=== PATIENT | female | born 1930 | race Caucasian/White ===

== ENCOUNTER 2017-03-03 15:18 | Inpatient (IN) | payer MEDICARE, OTHER ==
[~2017-03-03] VITALS: Ht 152.4 cm; Wt 59.0 kg
--- NOTE | 2017-03-03 15:20 | NUR ---
BIB respiratory care assistant to ER for chest pain, left shoulder pain, and back pain, aching x 4 days. Patient is aao4.Appears in no apparent distress. Respiration even and unlabored, Skin is warm to touch and non diaphoretic. Afebrile. Gowned pt and placed on tele monitor.vss
--- NOTE | 2017-03-03 15:45 | NUR ---
DR. CASSIDY AT BS.
[2017-03-03] MEDS ORDERED: ASPIRIN 81 MG TAB.CHEW ONE ×2 (15:53→15:56)
[2017-03-03 15:54] LABS: BASOPHILS # (AUTO) 0.1 /CMM (0.0-0.2); BASOPHILS % (AUTO) 0.7 % (0.0-2.0); EOSINOPHILS # (AUTO) 0.3 /CMM (0.0-0.7); EOSINOPHILS % (AUTO) 3.3 % (0.0-6.0); HEMATOCRIT 41 % (33-45); HEMOGLOBIN 13.6 g/dL (11.5-14.8); LYMPHOCYTES # (AUTO) 2.2 /CMM (0.8-4.8); LYMPHOCYTES % (AUTO) 25.5 % (20.0-44.0); MEAN CORPUSCULAR HEMOGLOBIN 31 PG (26.0-33.0); MEAN CORPUSCULAR HGB CONC 33 g/dl (31.0-36.0); MEAN CORPUSCULAR VOLUME 94 fL (82-100); MONOCYTES # (AUTO) 0.6 /CMM (0.1-1.30); MONOCYTES % (AUTO) 6.5 % (2.0-12.0); NEUTROPHILS # (AUTO) 5.4 /CMM (1.8-8.9); PLATELET COUNT (AUTO) 152 /CMM (150-450); RDW COEFFICIENT OF VARIATION 12.6 (11.5-15.0); RED BLOOD CELL COUNT(AUTO) 4.41 MIL/uL (4.0-5.2); WHITE BLOOD COUNT (AUTO) 8.6 K/uL (4.3-11.0)
[2017-03-03] MEDS ORDERED: ASPIRIN 81 MG TAB.CHEW PO ONE (16:00)
[2017-03-03 16:04] LABS: CALCIUM, SERUM 9.6 mg/dL (8.5-10.1); CARBON DIOXIDE 27 mmol/L (21-32); CHLORIDE 105 mmol/L (98-107); CREATININE 1.2 mg/dL (0.6-1.3); GLUCOSE 99 mg/dL (74-106); POTASSIUM 4.7 mmol/L (3.5-5.1); SODIUM SERUM 138 mmol/L (136-145); UREA NITROGEN, BLOOD 27 mg/dL (7-18)
[2017-03-03 16:06] LABS: INR 0.99 (0.87-1.13); PROTHROMBIN TIME 10.3 SECS (9.5-12.7)
[2017-03-03 16:13] LABS: TROPONIN I < 0.017 ng/mL (0.00-0.056)
[2017-03-03] MEDS ORDERED: Z GUARD REMEDY 2 OZ OINT TP PRN ×2 (17:00→18:00)
[2017-03-03] MEDS ORDERED: MAGNESIUM HYDROXIDE 30 ML UDC PO PRN ×2 (17:00→18:00)
[2017-03-03] MEDS ORDERED: ACETAMINOPHEN 325 MG TABLET PO PRN ×2 (17:00→18:00)
[2017-03-03] MEDS ORDERED: TRAMADOL HCL 50 MG TABLET PO PRN ×2 (17:00→18:00)
[2017-03-03] MEDS ORDERED: MAG HYDROX/AL HYDROX/SIMETH 30 ML UDC PO PRN ×2 (17:00→18:00)
[2017-03-03] MEDS ORDERED: ONDANSETRON HCL/PF 4 MG/2 ML VIAL IVP PRN ×2 (17:00→18:00)
[2017-03-03] MEDS ORDERED: ZOLPIDEM TARTRATE 5 MG TABLET PO PRN ×2 (17:00→18:00)
--- NOTE | 2017-03-03 17:42 | NUR ---
REPORT GIVEN TO CARMEN TALLEY FOR 323-1
[2017-03-03] MEDS ORDERED: FLUTICASONE FUROATE IH (19:18)
[2017-03-03] MEDS ORDERED: LACT1CAP61 PO (19:18)
[2017-03-03] MEDS ORDERED: CRAN450T3 PO (19:18)
[2017-03-03] MEDS ORDERED: CYAN10009 PO (19:18)
[2017-03-03] MEDS ORDERED: LEVO25TA2 PO (19:18)
[2017-03-03] MEDS ORDERED: DOCU250C75 PO (19:18)
[2017-03-03] MEDS ORDERED: TRAM50TA2 PO (19:18)
[2017-03-03] MEDS ORDERED: DEXT15DR6 EACHEYE (19:18)
[2017-03-03] MEDS ORDERED: ESOM40CA PO (19:18)
[2017-03-03] MEDS ORDERED: BISM262O28 PO (19:18)
[2017-03-03] MEDS ORDERED: DIPH50CA4 PO (19:18)
[2017-03-03] MEDS ORDERED: MELA1TAB15 PO (19:18)
[2017-03-03] MEDS ORDERED: ACET-1443 PO ×2 (19:18)
[2017-03-03] MEDS ORDERED: ASPI-605 PO (19:18)
[2017-03-03] MEDS ORDERED: ATOR20TA PO (19:18)
[2017-03-03] MEDS ORDERED: FURO20TA4 PO (19:18)
[2017-03-03] MEDS ORDERED: GUAI100S4 PO (19:18)
[2017-03-03] MEDS ORDERED: VILANTEROL IH (19:18)
[2017-03-03] MEDS ORDERED: MAGN400O6 PO (19:18)
[2017-03-03] MEDS ORDERED: CARBIDOPA 25 MG PO (19:18)
[2017-03-03] MEDS ORDERED: LOPE2CAP PO (19:18)
[2017-03-03] MEDS ORDERED: ALPH1TAB9 PO (19:18)
[2017-03-03] MEDS ORDERED: CARB-93 PO ×2 (19:18)
[2017-03-03] MEDS ORDERED: FLUT16SP BNOSTRILS (19:18)
[2017-03-03] MEDS ORDERED: SIME80TA PO (19:18)
[2017-03-03] MEDS ORDERED: BLOO-668 IN (19:18)
[2017-03-03] MEDS ORDERED: Combivent Respimat IH (19:36)
--- NOTE | 2017-03-03 19:55 | NUR ---
RN INITIAL NOTES: RECEIVED REPORT FROM CARMEN, PT IN BED, AWAKE, A/O X3 ON RA RESPIRATION EVEN AND UNLABORED, DENIES ANY PAIN OR DISCOMFORT AT THIS TIME, PT HAS RIGHT FA IV ACCESS PATENT AND FLUSHING WELL, ON HL. ON SINUS RHYTHM HR 63. PT WAS ACCIDENTALLY REMOVED FROM THE SYSTEM AND WAS INFORMED BY CARMEN TALLEY THAT ADMITTING STILL WORKING ON IT. MED RECON NEEDS TO BE DONE BY . SAFETY PRECAUTIONS FOR FALL INITIATED CALL LIGHT IN REACH, WILL CONTINUE TO MONITOR.
[2017-03-03 20:00] VITALS: BP 109/57
--- NOTE | 2017-03-03 20:32 | NUR ---
RN NOTES: CONTACTED JOSE LUIS MCKEE REGARDING MED RECON, MED RECON WASNT DONE BY ADMITTING MD, INFORMED THAT PT'S REQUESTING FOR LIPITOR AND SLEEPING PILL MELATONIN, PER JOSE LUIS MCKEE TO ORDER LIPITOR 20MG PO HS AND GIVE MELATONIN X 1DOSE, CONTACTED CYNTHIA AND INFORMED THAT I'M UNABLE TO ORDER MELATONIN, PER PHARMACIST HOSPITAL DOESNT CARRY MELATONIN, THAT'S WHY THERE'S AN ORDER FOR AMBIEN.
--- NOTE | 2017-03-03 20:33 | NUR ---
RN NOTES: PER JOSE LUIS HE WILL TAKE A LOOK AT THE PT'S HOME MED LIST
[2017-03-03] MEDS ORDERED: ATORVASTATIN 10 MG TABLET PO SCH (22:00)
--- NOTE | 2017-03-03 22:26 | NUR ---
PRN ULTRAM: PT C/O 12/07 UPPER AND LOWER BACK PAIN REQUESTING FOR HER TRAMADOL, PRN TRAMADOL 50MG TAB PO ADMINISTERED TO THE PT AT THIS TIME, WILL CONTINUE TO MONITOR AND REASSESS PT
--- NOTE | 2017-03-03 23:00 | NUR ---
SKIN ASSESSMENT: BODY CHECK PERFORMED, SKIN ISSUES NOTED, PLEASE SEE SKIN PROBLEM ASSESSMENT, TOOK PICTURES AND ATTACHED TO CHART, ALSO PT REFUSED TO REMOVED THE DRESSING IN THE RIGHT LEG, SHE STATED HER OWN CLAY PIGEON SETTER APPLIED THE DRESSING AND WAS TOLD TO KEEP THE DRESSING IN PLACED, PT REFUSED TO TAKE THE DRESSING OFF, SO I TOLD THE PT I WILL JUST TAKE THE PHOTO IS, EVEN THE LEG AREA HAS DRESSING,
--- NOTE | 2017-03-03 23:10 | NUR ---
PRN AMBIEN: PT REQUESTED FOR SLEEPING PILL, INFORMED PT THAT HOSPITAL DOESNT CARRY MELATONIN HER USUAL SLEEPING PILL, AND INSTEAD REPLACED/CONVERTED TO AMBIEN, PT AGREE, STATED ITS OKAY, PRN AMBIEN 5MG PO ADMINISTERED TO THE PT AT THIS TIME,
[2017-03-04] VITALS (7 sets, daily range): BP systolic 131–151; BP diastolic 74–96
--- NOTE | 2017-03-04 02:00 | NUR ---
RN NOTES: SNACK PROVIDED TO THE PT, CONSUMED MEAL 100% JELLO AND JUICE
--- NOTE | 2017-03-04 03:16 | NUR ---
RN NOTES: SEEN PT SLEEPING, NO FACIAL GRIMACE NOTED, APPEARS CALM AND COMFORTABLE, WILL CONTINUE TO MONITOR
--- NOTE | 2017-03-04 04:14 | NUR ---
PRN TYLENOL: PT REQUESTING FOR ANOTHER SLEEPING PILL, I INFORMED HER THAT I CANNOT GIVE ANOTHER DOSE AND ALSO ITS 0400AM WE DONT USUALLY GIVE SLEEPING PILL AFTER 0200AM PER PROTOCOL, PT REQUESTED TO GET TYLENOL INSTEAD SHE STATED IT MAY HELP HER SLEEP AND RELIEVE HER BACK PAIN 08/07, PRN TYLENOL 650MG TAB PO ADMINISTERED TO THE PT AT THIS TIME.
[2017-03-04] MEDS ORDERED: MUCINEX PO (04:40)
[2017-03-04] MEDS ORDERED: ROPINIROLE HCL PO (04:40)
[2017-03-04] MEDS ORDERED: VITAMIN D2 PO (04:40)
[2017-03-04] MEDS ORDERED: PREMARIN VAG CREAM TOP (04:40)
[2017-03-04] MEDS ORDERED: MAGNESIUM OXIDE PO (04:40)
[2017-03-04] MEDS ORDERED: POTASSIUM CL PO (04:40)
[2017-03-04] MEDS ORDERED: PRESERVISION AREDS PO (04:40)
[2017-03-04] MEDS ORDERED: VITAMIN B COMPLEX (04:44)
--- NOTE | 2017-03-04 05:35 | NUR ---
RN NOTES: LEWIS LEONG PROVIDED BED BATH TO THE PT, ALSO PT BEEN USING BED ROSALES Q2HRS TO VOID, AND REQUESTED USE OF DIAPER IN CASE OF ACCIDENT
--- NOTE | 2017-03-04 06:43 | NUR ---
RN CLOSING NOTES: PT IN BED, AWAKE, REMAINS A/O X3 WITH PERIODS OF CONFUSION AT TIMES, ON RA PT REFUSING FOR OXYGEN. RFA IV ACCESS REMAINS PATENT AND FLUSHING WELL, ON HL. PT ON SINUS ARRHYTHMIA HR 65. VS REMAINS STABLE, NEEDS ATTENDED, BLE KEPT OFFLOADED. STILL NEED MED RECON TO BE DONE BY MD. SAFETY PRECAUTIONS FOR FALL REMAINS ENGAGED, CALL LIGHT IN REACH, WILL ENDORSE TO DAY RN FOR DIANN.
[2017-03-04 07:28] LABS: BASOPHILS % (AUTO) 0.4 % (0.0-2.0); EOSINOPHILS # (AUTO) 0.2 /CMM (0.0-0.7); EOSINOPHILS % (AUTO) 1.5 % (0.0-6.0); HEMATOCRIT 42 % (33-45); HEMOGLOBIN 13.9 g/dL (11.5-14.8); LYMPHOCYTES # (AUTO) 1.5 /CMM (0.8-4.8); LYMPHOCYTES % (AUTO) 14.8 % (20.0-44.0); MEAN CORPUSCULAR HEMOGLOBIN 31 PG (26.0-33.0); MEAN CORPUSCULAR HGB CONC 33 g/dl (31.0-36.0); MEAN CORPUSCULAR VOLUME 94 fL (82-100); MONOCYTES # (AUTO) 0.5 /CMM (0.1-1.30); MONOCYTES % (AUTO) 4.7 % (2.0-12.0); NEUTROPHILS # (AUTO) 8.1 /CMM (1.8-8.9); NEUTROPHILS % (AUTO) 78.6 % (43.0-81.0); RDW COEFFICIENT OF VARIATION 13.5 (11.5-15.0); RED BLOOD CELL COUNT(AUTO) 4.51 MIL/uL (4.0-5.2); WHITE BLOOD COUNT (AUTO) 10.3 K/uL (4.3-11.0)
--- NOTE | 2017-03-04 07:30 | NUR ---
RN AM NOTES: RECEIVED REPORT, PT IN BED, AWAKE, A/O X3, WITH PERIODS OF CONFUSION, ON RA PT REFUSES OXYGEN. RFA IV ACCESS RFA G20 FLUSHES WELL SITE CLEAR, TELEMETRY READS SR, HR 81, DENIES CHEST DISCOMFORT, REGULAR DIET, BED REST FOR NOW. SEE NURSING FLOWSHEET FOR SKIN ISSUES, BLE KEPT OFFLOADED. STILL NEED MED RECON TO BE DONE BY , DR. CASSIDY NOTIFIED. SAFETY MEASURES IN PLACE, CALL LIGHT IN REACH, INSTRUCTED TO CALL FOR ASSIST. WILL ENDORSE CONTINUE TO MONITOR.
[2017-03-04 07:53] LABS: ALANINE AMINOTRANSFERASE 12 U/L (12-78); ALBUMIN 3.9 g/dL (3.4-5.0); ALKALINE PHOSPHATASE 61 U/L (46-116); ASPARTATE AMINOTRANSFERASE 11 U/L (15-37); BILIRUBIN,TOTAL 0.3 mg/dL (0.2-1.0); CALCIUM, SERUM 10.1 mg/dL (8.5-10.1); CARBON DIOXIDE 24 mmol/L (21-32); CHLORIDE 106 mmol/L (98-107); CREATININE 1.2 mg/dL (0.6-1.3); GLUCOSE 127 mg/dL (74-106); MAGNESIUM 1.9 mg/dL (1.8-2.4); PHOSPHORUS 2.7 mg/dL (2.5-4.9); POTASSIUM 4.8 mmol/L (3.5-5.1); SODIUM SERUM 139 mmol/L (136-145); TOTAL PROTEIN, SERUM 6.8 g/dL (6.4-8.2); UREA NITROGEN, BLOOD 22 mg/dL (7-18)
[2017-03-04 07:55] LABS: CHOLESTEROL 117 mg/dL (<200); HDL CHOLESTEROL 50 mg/dL (40-60); LDL 53 mg/dL (0-99); PLATELET COUNT (AUTO) 121 /CMM (150-450); THYROID STIMULATING HORMONE 3.986 uIU/mL (0.358-3.74); TRIGLYCERIDES 94 mg/dL (30-150)
--- NOTE | 2017-03-04 09:30 | NUR ---
LEGAL SECRETARY NOTES PER DR. CASSIDY, PT WILL GO HOME TODAY.
--- NOTE | 2017-03-04 17:06 | NUR ---
MS RN NOTES PT DISCHARGED TO [facility] TODAY PER MD IN STABLE CONDITION. PROVIDED DC INSTRUCTIONS, MED RECON LIST AND HEALTH TEACHINGS. RFA IV ACCESS,REMOVED, CATH TIP COMPLETE, NO BLEEDING DRESSING IN PLACE. PATIENT REFUSE TO HAVE PHOTOS OF SKIN ISSUES TAKEN AND STATED IT WAS JUST DONE LAST NIGHT. PATIENT TO FOLLOW UP WITH PCP IN 1-2 WEEKS AND WILL MAKE OWN APPOINTMENT. ALL BELONGINGS CHECKED AND RETURNED. ALL PAPERWORKS SIGNED. ASSISTED BY LEWIS CARDENAS AND CAREGIVER AND WILL GO TO FACILITY VIA PRIVATE CAR.
[2017-03-04] MEDS ORDERED: ONDANSETRON 4 MG TAB.RAPDIS PO ONE (17:30)
== END 2017-03-04 18:11 | disposition home or self-care (01) | DRG 184 ==
LOC: ER 15:21 → MED 18:57 → TELE 19:18
PROVIDERS: ADMIT Internal Medicine; ATTEND Internal Medicine
DX: S22.42XA Multiple fractures of ribs, left side, initial encounter for closed fracture (principal); M80.88XA Other osteoporosis with current pathological fracture, vertebra(e), initial encounter for fracture; G20 Parkinson's disease; J90 Pleural effusion, not elsewhere classified; J44.9 Chronic obstructive pulmonary disease, unspecified; N28.1 Cyst of kidney, acquired; I25.10 Atherosclerotic heart disease of native coronary artery without angina pectoris; E11.9 Type 2 diabetes mellitus without complications; E78.5 Hyperlipidemia, unspecified; E03.9 Hypothyroidism, unspecified; G89.29 Other chronic pain; R91.8 Other nonspecific abnormal finding of lung field; Z88.2 Allergy status to sulfonamides; Z85.820 Personal history of malignant melanoma of skin
CPT/HCPCS: 36415; 71010-TC; 71250-TC; 76770-TC; 80048-TC; 80053-TC; 80061-TC; 83735-TC; 84100-TC; 84443-TC; 84484-TC; 85025-TC; 85730-TC; 93307-TC; A4606; Z7610

== ENCOUNTER 2018-05-24 10:06 | Inpatient (IN) | payer MEDICARE, OTHER ==
[~2018-05-24] VITALS: Ht 160 cm; Wt 76.7 kg
[~2018-05-24 10:06] MED LIST: ACET-1443 PO; ALPH1TAB9 PO; ASPI-605 PO; ATOR20TA PO; BISM262O28 PO; BLOO-668 IN; CARB-93 PO; CARBIDOPA 25 MG PO; CRAN450T3 PO; CYAN10009 PO; Combivent Respimat IH; DEXT15DR6 EACHEYE; DIPH50CA4 PO; DOCU250C14 PO; ESOM40CA PO; FLUT16SP BNOSTRILS; FLUTICASONE FUROATE IH; FURO20TA4 PO; GUAI100S4 PO; LACT1CAP61 PO; LEVO25TA2 PO; LOPE2CAP PO; MAGN400O6 PO; MAGNESIUM OXIDE PO; MELA1TAB15 PO; MUCINEX PO; POTASSIUM CL PO; PREMARIN VAG CREAM TOP; PRESERVISION AREDS PO; ROPINIROLE HCL PO; SIME80TA PO; TRAM50TA2 PO; VILANTEROL IH; VITAMIN B COMPLEX; VITAMIN D2 PO
[2018-05-24] MEDS ORDERED: IV NS 0.9% 500 ML BAG IV ONE (10:30)
--- NOTE | 2018-05-24 10:31 | NUR ---
PT BIBA 881 From [facility] witnessed GLF "was reaching for wreath- fell Hip pain". Alert and oriented x 3, verbally responsive, and able to make needs, known. on room air 90, 02 via NC administered and sating at 96%. c/o of pain on the left hip 5/10. Kept comfortable, will continue to monitor accordingly. Dr. Santiago at bedside for eval.
[2018-05-24 10:38] LABS: BASOPHILS % (AUTO) 0.1 % (0.0-2.0); HEMATOCRIT 36 % (33-45); HEMOGLOBIN 11.6 g/dL (11.5-14.8); LYMPHOCYTES # (AUTO) 0.3 /CMM (0.8-4.8); LYMPHOCYTES % (AUTO) 2.2 % (20.0-44.0); MEAN CORPUSCULAR HGB CONC 32 g/dl (31.0-36.0); MEAN CORPUSCULAR VOLUME 95 fL (82-100); MONOCYTES # (AUTO) 0.8 /CMM (0.1-1.30); MONOCYTES % (AUTO) 6.5 % (2.0-12.0); NEUTROPHILS % (AUTO) 91.2 % (43.0-81.0); PLATELET COUNT (AUTO) 108 /CMM (150-450); RED BLOOD CELL COUNT(AUTO) 3.81 MIL/uL (4.0-5.2)
--- NOTE | 2018-05-24 10:44 | NUR ---
wheeled patient via gurney going to radilogy department for CT scan and x-ray.
[2018-05-24 10:51] LABS: CALCIUM, SERUM 9.2 mg/dL (8.5-10.1); CARBON DIOXIDE 24 mmol/L (21-32); CHLORIDE 104 mmol/L (98-107); CREATININE 1.5 mg/dL (0.6-1.3); GLUCOSE 160 mg/dL (74-106); POTASSIUM 4.2 mmol/L (3.5-5.1); SODIUM SERUM 138 mmol/L (136-145); UREA NITROGEN, BLOOD 34 mg/dL (7-18)
--- NOTE | 2018-05-24 11:09 | NUR ---
patient came back from CT.
[2018-05-24 11:11] LABS: ALANINE AMINOTRANSFERASE 14 U/L (12-78); ALBUMIN 3.4 g/dL (3.4-5.0); ALKALINE PHOSPHATASE 70 U/L (46-116); ASPARTATE AMINOTRANSFERASE 18 U/L (15-37); BILIRUBIN,DIRECT 0.2 mg/dL (0.0-0.2); BILIRUBIN,TOTAL 0.8 mg/dL (0.2-1.0)
[2018-05-24 11:12] LABS: TOTAL PROTEIN, SERUM 6.5 g/dL (6.4-8.2)
[2018-05-24] MEDS ORDERED: VIT1CAPS44 PO (11:19)
[2018-05-24] MEDS ORDERED: GUAI600T53 PO (11:19)
[2018-05-24] MEDS ORDERED: CARB25TA3 PO (11:19)
[2018-05-24] MEDS ORDERED: NAPR-1082 PO (11:19)
[2018-05-24] MEDS ORDERED: BLOO-668 IN (11:19)
[2018-05-24] MEDS ORDERED: ONDA4TAB5 PO (11:19)
[2018-05-24] MEDS ORDERED: ERGO500014 PO (11:19)
[2018-05-24] MEDS ORDERED: ASPI-1152 PO (11:19)
[2018-05-24] MEDS ORDERED: SIME80TA14 PO ×2 (11:19)
[2018-05-24] MEDS ORDERED: VITA1TAB56 PO (11:19)
[2018-05-24] MEDS ORDERED: MELA3TAB PO (11:19)
[2018-05-24] MEDS ORDERED: LINA5TAB PO (11:19)
[2018-05-24] MEDS ORDERED: MAGN250T10 PO (11:19)
[2018-05-24] MEDS ORDERED: ASCO500T9 PO (11:19)
[2018-05-24] MEDS ORDERED: ESTR42.5 VG (11:19)
[2018-05-24] MEDS ORDERED: ROPI0.5T PO (11:19)
[2018-05-24] MEDS ORDERED: CALC500T13 PO (11:19)
[2018-05-24] MEDS ORDERED: POLY15DR40 EACHEYE (11:19)
[2018-05-24] MEDS ORDERED: ROPI1TAB2 PO (11:19)
[2018-05-24] MEDS ORDERED: ALPH1TAB9 PO (11:19)
[2018-05-24] MEDS ORDERED: FLUT1BLS IH (11:19)
[2018-05-24] MEDS ORDERED: BISM262T27 PO (11:19)
--- NOTE | 2018-05-24 14:07 | NUR ---
Pt is assigned to [facility]#: 312-2, DX: renal failure / hypoxia, and accepting: Polo Canseco NP.
--- NOTE | 2018-05-24 14:15 | NUR ---
REPORT CALLED TO UMU TIDWELL.
--- NOTE | 2018-05-24 14:41 | NUR ---
wheeled patient via gurney accompanied by emt and rn via acls protocol, going to room 312-2 T. in no apparent distress noted.
[2018-05-24] MEDS ORDERED: ONDANSETRON HCL/PF 4 MG/2 ML VIAL IVP PRN (15:00)
[2018-05-24] MEDS ORDERED: TEMAZEPAM 15 MG CAPSULE PO PRN (15:00)
[2018-05-24] MEDS ORDERED: MAG HYDROX/AL HYDROX/SIMETH 30 ML UDC PO PRN (15:00)
[2018-05-24] MEDS ORDERED: MAGNESIUM HYDROXIDE 30 ML UDC PO PRN ×2 (15:00→20:00)
[2018-05-24] MEDS ORDERED: HYDROCODONE/APAP 5/325MG 1 EACH TABLET PO PRN (15:00)
[2018-05-24] MEDS ORDERED: DEXTROSE 50%-WATER 50 ML DISP.SYRIN IV PRN (15:30)
[2018-05-24] MEDS ORDERED: INSULIN REGULAR, HUMAN 100 UNIT/ML 3 ML VIAL SQ PRN (15:30)
[2018-05-24] MEDS: IV NS 0.9% 1,000 ML IV PRN (15:44)
[2018-05-24] MEDS: ACETAMINOPHEN 325 MG TABLET PO PRN (15:52)
[2018-05-24 16:00] VITALS: BP 139/77
--- NOTE | 2018-05-24 16:00 | NUR ---
ELECTRONICS SYSTEM MECHANIC NOTES PATIENT ARRIVED VIA GURNEY ALERT, ORIENTED X3 NO SOB OR ACUTE DISTRESS NOTED. PATIENT DENIES ANY PAIN, FAMILY AT BEDSIDE. MURPHY AYALA AT BEDSIDE. PATIENT ORIENTED TO ROOM. CALL LIGHT WITHIN REACH. BED IN LOW LOCKED POSITION. WILL CONTINUE TO MONITOR.
[2018-05-24] MEDS ORDERED: ALBUTEROL FS 2.5 MG/0.5 ML VIAL.NEB NEB PRN (17:30)
[2018-05-24] MEDS ORDERED: IPRATROPIUM NEB FS 0.5 MG/2.5 ML AMPUL.NEB NEB PRN (17:30)
[2018-05-24 17:34] LABS: APPEARANCE,URINE SL CLOUDY (CLEAR); BILIRUBIN,URINE NEGATIVE (NEGATIVE); BLOOD, URINE 3+ Ery/uL (NEGATIVE); COLOR,URINE YELLOW (YELLOW); KETONES,URINE NEGATIVE (NEGATIVE); LEUKOCYTE ESTERASE ,URINE TRACE (NEGATIVE); NITRITE, URINE NEGATIVE (NEGATIVE); PROTEIN,URINE 1+ mg/dl (NEGATIVE); UGLUCOSE NEGATIVE (NEGATIVE); UROBILINOGEN,URINE 0.2 EU/dL (0.2)
[2018-05-24 17:50] LABS: BACTERIA,URINE 3+ /HPF (None Seen); RBC,URINE 21-50 /HPF (0-2); SQUAMOUS EPITHELIAL CELL,UR Few /HPF (None Seen); WBC,URINE 21-50 /HPF (0-3)
[2018-05-24] MEDS: BLOOD SUGAR DIAGNOSTIC 1 EACH STRIP VI SCH ×2 (18:01→22:40)
--- NOTE | 2018-05-24 19:00 | NUR ---
MS RN NOTES PATIENT IN BED RESTING ALL DUE MEDICATIONS ADMINISTERED. ALL NEEDS MET WILL ENDORSE TO PM SHIFT DIANN. NO ACUTE CHANGES NOTED DURING SHIFT.
--- NOTE | 2018-05-24 19:33 | NUR ---
ASSOCIATE PROFESSOR OF CHURCH MUSIC OPENING NOTES RECEIVED PATIENT IN BED AWAKE, ALERT AND ORIENTED X3, VERBALLY RESPONSIVE, ABLE TO MAKE NEEDS KNOWN. BREATHING EVEN AND UNLABORED. NO SOB NOTED. TOLERATING ROOM AIR. IV ON RIGHT HAND #20 INTACT AND PATENT. SKIN DRY AND WARM TO TOUCH. AFEBRILE. NO COMPLAINTS OF PAIN OR DISCOMFORT. NO FACIAL GRIMACING. ALL OTHER NEEDS ATTENDED TO. SAFETY MEASURES IN PLACE. CALL LIGHT WITHIN REACH. WILL CONTINUE TO MONITOR.
--- NOTE | 2018-05-24 19:52 | NUR ---
CASING PULLER NOTES VIRI AYALA, HERE IN UNIT, MADE AWARE OF MED RECON. PER VIRI ARRINGTON, HE WILL DO THE MED RECON.
[2018-05-24] MEDS ORDERED: TRAMADOL HCL 50 MG TABLET PO PRN (20:00)
[2018-05-24] MEDS ORDERED: POLYVINYL ALCOHOL 15 ML BOTTLE EACHEYE PRN (20:00)
[2018-05-24] MEDS ORDERED: DOCUSATE SODIUM 250 MG CAPSULE PO PRN (20:00)
[2018-05-24 20:46] VITALS: BP 111/61
[2018-05-24] MEDS: ATORVASTATIN 10 MG TABLET PO SCH (22:34)
[2018-05-24] MEDS: *INSULIN REGULAR(HUMULIN R)HUM 100 UNIT/ML VIAL SQ PRN (22:50)
[2018-05-25 01:18] VITALS: BP 132/70
[2018-05-25 04:38] VITALS: BP 112/72
[2018-05-25 06:19] LABS: BASOPHILS % (AUTO) 0.2 % (0.0-2.0); EOSINOPHILS % (AUTO) 0.2 % (0.0-6.0); HEMATOCRIT 34 % (33-45); HEMOGLOBIN 11.2 g/dL (11.5-14.8); LYMPHOCYTES # (AUTO) 0.3 /CMM (0.8-4.8); LYMPHOCYTES % (AUTO) 4.2 % (20.0-44.0); MEAN CORPUSCULAR HGB CONC 33 g/dl (31.0-36.0); MEAN CORPUSCULAR VOLUME 94 fL (82-100); MONOCYTES # (AUTO) 0.7 /CMM (0.1-1.30); MONOCYTES % (AUTO) 8.9 % (2.0-12.0); NEUTROPHILS # (AUTO) 6.9 /CMM (1.8-8.9); NEUTROPHILS % (AUTO) 86.5 % (43.0-81.0); PLATELET COUNT (AUTO) 95 /CMM (150-450); WHITE BLOOD COUNT (AUTO) 7.9 K/uL (4.3-11.0)
[2018-05-25 06:31] LABS: CHOLESTEROL 76 mg/dL (<200); HDL CHOLESTEROL 34 mg/dL (40-60); LDL 31 mg/dL (0-99); TRIGLYCERIDES 87 mg/dL (30-150)
[2018-05-25 06:36] LABS: CALCIUM, SERUM 8.6 mg/dL (8.5-10.1); CARBON DIOXIDE 22 mmol/L (21-32); CHLORIDE 107 mmol/L (98-107); CREATININE 1.3 mg/dL (0.6-1.3); GLUCOSE 127 mg/dL (74-106); PHOSPHORUS 1.9 mg/dL (2.5-4.9); POTASSIUM 3.6 mmol/L (3.5-5.1); SODIUM SERUM 141 mmol/L (136-145); UREA NITROGEN, BLOOD 26 mg/dL (7-18)
--- NOTE | 2018-05-25 06:41 | NUR ---
DAY SPA MANAGER NOTES BS 123. NO COVERAGE NEEDED.
--- NOTE | 2018-05-25 06:43 | NUR ---
ASSOCIATE PROFESSOR OF SOCIOLOGY CLOSING NOTES PATIENT IN BED AWAKE, NO ACUTE CHANGES THROUGHOUT SHIFT. BREATHING EVEN AND UNLABORED. NO SOB NOTED. ON 3LPM OXYGEN VIA NC. IV ON LEFT FOREARM G#22 INTACT AND PATENT. SKIN DRY AND WARM TO TOUCH. AFEBRILE. NO COMPLAINTS OF PAIN OR DISCOMFORT. NO FACIAL GRIMACING. KEPT CLEAN DRY AND COMFORTABLE. ALL OTHER NEEDS ATTENDED TO. SAFETY MEASURES IN PLACE. CALL LIGHT WITHIN REACH. WILL ENDORSE TO ONCOMING NURSE FOR DIANN.
[2018-05-25] MEDS: BLOOD SUGAR DIAGNOSTIC 1 EACH STRIP VI SCH ×4 (07:23→21:31)
[2018-05-25 08:00] VITALS: BP 136/82
--- NOTE | 2018-05-25 08:00 | NUR ---
RN NOTES PATIENT IN BED RESTING NO SOB OR ACUTE DISTRESS NOTED. PATIENT ALERT, ORIENTED X2. BED IN LOW LOCKED POSITION CALL LIGHT WITHIN REACH. PERIPHERAL IV INTACT PATENT. WILL CONTINUE TO MONITOR.
[2018-05-25] MEDS: ropiniROLE 0.5 MG TABLET PO SCH ×2 (08:13→12:21)
[2018-05-25] MEDS: ASCORBIC ACID 500 MG TABLET PO SCH (08:13)
[2018-05-25] MEDS: ASPIRIN EC 81 MG TABLET.DR PO SCH (08:13)
[2018-05-25] MEDS: CARBIDOPA/LEVODOPA 25/100 MG 1 UDTAB PO SCH ×4 (08:13→16:56)
[2018-05-25] MEDS: PANTOPRAZOLE 40 MG TABLET.DR PO SCH (08:13)
[2018-05-25] MEDS: FLUTICASONE/VILANTEROL 1 EACH BLST.W.DEV IH SCH (08:19)
[2018-05-25] MEDS ORDERED: CARBIDOPA 25 MG TABLET PO SCH ×2 (09:00→13:00)
[2018-05-25 09:03] LABS: LYMPHOCYTES % (MANUAL) 1 % (16-48); MONOCYTES % (MANUAL) 9 % (0-11.0); NEUTROPHILS % (MANUAL) 90 (42-76)
--- NOTE | 2018-05-25 09:45 | NUR ---
RN NOTES PHARMACY QUESTIONING DOSE OF LODOSYN 25MG HOLDING DOSE UNTIL CLARIFIED CALLED [facility] ASSISTED LIVING TO CLARIFY LEFT VOICE MAIL WITH HEALTH OFFICE WAITING FOR CALL BACK NOTIFIED PHARMACY.
[2018-05-25] MEDS ORDERED: Z GUARD REMEDY 2 OZ OINT TP PRN (10:30)
[2018-05-25] MEDS: CIPROFLOXACIN HCL 250 MG TABLET PO SCH ×2 (12:21→21:30)
[2018-05-25] MEDS ORDERED: K PHOS NEUTRAL 250 MG TABLET PO ONE (13:30)
[2018-05-25] MEDS: IV NS 0.9% 1,000 ML IV PRN (14:35)
[2018-05-25 15:50] VITALS: BP 119/61
--- NOTE | 2018-05-25 18:49 | NUR ---
EXPERIMENTAL MECHANIC SPACECRAFT NOTES PATIENT IN BED RESTING NO SOB OR ACUTE DISTRESS NOTED. PATIENT VERBALIZES HER PAIN WAS CONTROLLED. PATIENT REPORTS SHE STILL HAS HEAD ACHE 07/10 BUT WAS CONTROLLED WITH MEDICATION. PERIPHERAL IV INTACT PATENT. ALL DUE MEDIATIONS ADMINISTERED. ALL NEEDS MET. WILL ENDORSE TO PM SHIFT DIANN. Addendum: 05/25/18 at 1859 by UMU FALCON RN ERROR WRONG PATIENT CHARTING.
--- NOTE | 2018-05-25 18:59 | NUR ---
RN NOTES PATIENT IN BED RESTING NO SOB OR ACUTE DISTRESS. ALL DUE MEDICATIONS ADMINISTERED. ALL NEEDS MET. WILL ENDORSE TO PM SHIFT DIANN.
[2018-05-25 20:00] VITALS: BP 114/65
--- NOTE | 2018-05-25 20:00 | NUR ---
MS BUTTON SPINDLER INITIAL NOTES PT SEEN IN BED AWAKE AND ALERT ON SITTING POSITION INSIDE HER BED , DENIES ANY PAIN OR ANY DISCOMFORT, NO SOB NOTED. AWARE WHERE SHE AT. ENCOURAGE HER TO USED THE CALL LIGHT SYSTEM IF SHE NEEDS SOME HELPED OR NEEDS ASSISTANCE. SKIN WARM AND DRY TO TOUCH NOTED MULTIPLE SCABS AND SOME BRUISE. KEPT HER WARM AND COMFORTABLE AT ALL TIMES. BED ALARM SET FOR SAFETY. PLACE CALL LIGHT AT REACH. WILL CONTINUE MONITORING.
[2018-05-25] MEDS: ATORVASTATIN 10 MG TABLET PO SCH (21:30)
[2018-05-25] MEDS: *INSULIN REGULAR(HUMULIN R)HUM 100 UNIT/ML VIAL SQ PRN (21:41)
--- NOTE | 2018-05-25 21:55 | NUR ---
MS JAIDA NOTES ROUTINE MEDS GIVEN AND BLOOD SUGAR CHECKED DONE 168, 3 UNITS OF REGULAR INSULIN GIVEN BRAD SQ ORDERED. NO SIGNS OF ANY HYPER GLYCEMIA NOTED. SNACKS ASLO SERVED . PT STILL WATCHING TV AT THIS TIME. PLACE CALL LIGHT AT REACH. WILL CONTINUE MONITORING.
[2018-05-26] MEDS: BLOOD SUGAR DIAGNOSTIC 1 EACH STRIP VI SCH ×4 (06:09→21:57)
[2018-05-26] MEDS: IV NS 0.9% 1,000 ML IV PRN (06:11)
[2018-05-26 06:33] LABS: BASOPHILS % (AUTO) 0.3 % (0.0-2.0); EOSINOPHILS % (AUTO) 2.1 % (0.0-6.0); HEMATOCRIT 34 % (33-45); HEMOGLOBIN 11.2 g/dL (11.5-14.8); LYMPHOCYTES # (AUTO) 0.6 /CMM (0.8-4.8); LYMPHOCYTES % (AUTO) 9.6 % (20.0-44.0); MEAN CORPUSCULAR HGB CONC 33 g/dl (31.0-36.0); MEAN CORPUSCULAR VOLUME 93 fL (82-100); MONOCYTES # (AUTO) 0.8 /CMM (0.1-1.30); MONOCYTES % (AUTO) 13.3 % (2.0-12.0); NEUTROPHILS # (AUTO) 4.7 /CMM (1.8-8.9); NEUTROPHILS % (AUTO) 74.7 % (43.0-81.0); PLATELET COUNT (AUTO) 104 /CMM (150-450); RED BLOOD CELL COUNT(AUTO) 3.64 MIL/uL (4.0-5.2); WHITE BLOOD COUNT (AUTO) 6.3 K/uL (4.3-11.0)
[2018-05-26 06:37] LABS: CALCIUM, SERUM 8.6 mg/dL (8.5-10.1); CARBON DIOXIDE 22 mmol/L (21-32); CHLORIDE 109 mmol/L (98-107); CREATININE 1.3 mg/dL (0.6-1.3); GLUCOSE 102 mg/dL (74-106); POTASSIUM 3.7 mmol/L (3.5-5.1); SODIUM SERUM 143 mmol/L (136-145); UREA NITROGEN, BLOOD 19 mg/dL (7-18)
--- NOTE | 2018-05-26 07:26 | NUR ---
MS WIRE TWISTING MACHINE OPERATOR CLOSING NOTES PT AWAKE AND ALERT WATCHING TV AT THIS TIME. MORNING CARE DONE . DENIES ANY PAIN OR ANY DISCOMFORT. STABLE BRAD THE NIGHT AND SLEPT WELL. KEPT HER WARM AND COMFORTABLE AT ALL TIMES. BLOOD SUGAR WITHIN NORMAL LIMIT. ENDORSE TO AM NURSE FOR CONTINUITY OF CARE. PLACE CALL LIGHT AT REACH.
--- NOTE | 2018-05-26 07:30 | NUR ---
MS GERRI OPENING NOTE RECEIVED PATIENT AWAKE ALERT AND ORIENTED x3. BED LOCKED IN LOWEST POSITION WITH SIDERAILS x UP FOR SAFETY. BED ALARM ON FOR SAFETY. FALL RISK, Addendum: 05/26/18 at 0952 by PILAR WOOD RN ON 2L/MIN VIA NASAL CANNULA TOLERATING WELL. NO FACIAL GRIMACING NOTED FOR PAIN. NO SOB OR DISTRESS NOTED. CALL LIGHT WITHIN REACH. ABLE TO COMMUNICATE NEEDS. IV INTACT AND PATENT WITH IV FLUIDS RUNNING AT THIS TIME AT 75 ML/HR [facility]ATING. [facility]. BLOOD SUGAR CHECKS AND INSULIN TO BE GIVEN NEEDED. LABS THIS MORNING AWAITING RESULTS. WILL CONTINUE CONTINUITY OF CARE
[2018-05-26 08:00] VITALS: BP 152/90
[2018-05-26] MEDS: ASCORBIC ACID 500 MG TABLET PO SCH (08:37)
[2018-05-26] MEDS: FLUTICASONE/VILANTEROL 1 EACH BLST.W.DEV IH SCH (08:37)
[2018-05-26] MEDS: CIPROFLOXACIN HCL 250 MG TABLET PO SCH (08:37)
[2018-05-26] MEDS: ropiniROLE 0.5 MG TABLET PO SCH ×2 (08:37→12:23)
[2018-05-26] MEDS: ASPIRIN EC 81 MG TABLET.DR PO SCH (08:37)
[2018-05-26] MEDS: PANTOPRAZOLE 40 MG TABLET.DR PO SCH (08:37)
[2018-05-26] MEDS: CARBIDOPA/LEVODOPA 25/100 MG 1 UDTAB PO SCH ×4 (08:37→17:15)
--- NOTE | 2018-05-26 08:37 | NUR ---
MS RN NOTE ALL MORNING MEDICATIONS GIVEN ORDERED.
--- NOTE | 2018-05-26 11:06 | NUR ---
MS RN NOTE PER MURPHY AYALA NP TO DC IV FLUIDS. ORDER NOTED AND CARRIED OUT
--- NOTE | 2018-05-26 11:50 | NUR ---
MS RN NOTE BLOOD SUGAR-111 NO INSULIN NEEDED. SINEMET GIVEN ORDERED.
[2018-05-26] MEDS: NYSTATIN/TRIAMCIN CREAM 15 GM TUBE TP SCH (15:15)
[2018-05-26] MEDS: ACETAMINOPHEN 325 MG TABLET PO PRN (15:18)
--- NOTE | 2018-05-26 15:18 | NUR ---
ms rn note patient requesting for tylenol for generalized pain. 08/07. repositioned and other alternatives offered, not effective. medication given. will reassess for effectiveness
[2018-05-26 16:00] VITALS: BP 148/73
--- NOTE | 2018-05-26 17:19 | NUR ---
ms rn note bs-103 no insulin needed
--- NOTE | 2018-05-26 18:30 | NUR ---
MS RN CLOSING NOTE PATIENT LAYING IN BED AWAKE WITH DAUGHTER AND CAREGIVER AT BEDSIDE. CALL LIGHT WITHIN REACH AT ALL TIMES. SAFETY MEASURES IMPLEMENTED. ABLE TO COMMUNICATE NEEDS. IV INTACT AND PATENT NO REDNESS OR SWELLING NOTED, NO FLUIDS AT THIS TIME. ALL DUE MEDICATIONS GIVEN ORDERED. ALL NURSING CARE NEEDS ATTENDED TO NEEDED. SEEN BY PT TODAY. BLOOD SUGAR CHECKED THROUGHOUT SHIFT AND NO INSULIN GIVEN. WOUND TREATMENT IN PLACE. ON 2L/MIN OF OXYGEN VIA NASAL CANNULA TOLERATING WELL NO SOB OR DISTRESS NOTED. NO PAIN NOTED AT THIS TIME. NO LABS ORDERED. AWAITING FOR SENSITIVITY RESULTS FOR URINE CULTURE PER MD. WILL ENDORSE TO SUPERVISOR RESPIRATORY NURSE FOR DIANN
--- NOTE | 2018-05-26 19:30 | NUR ---
RECEIVED PATIENT AWAKE IN BED, AO X 3, ABLE TO MAKE NEEDS KNOWN. NO ACUTE DISTRESS NOTED. DENIES ANY PAIN AT THIS TIME. IV SITE PATENT, INTACT; FLUSHED. SAFETY REMINDERS GIVEN. ON LOW BED WITH BILATERAL UPPER SIDE RAILS UP. CALL WHITMORE WITHIN EASY REACH. WILL CONTINUE TO MONITOR.
[2018-05-26 20:00] VITALS: BP 114/55
[2018-05-26] MEDS: NITROFURANTOIN/NITROFURAN MAC 100 MG CAPSULE PO SCH (21:17)
[2018-05-26] MEDS: ATORVASTATIN 10 MG TABLET PO SCH (21:17)
[2018-05-26] MEDS: *INSULIN REGULAR(HUMULIN R)HUM 100 UNIT/ML VIAL SQ PRN (22:00)
[2018-05-27] MEDS: NYSTATIN/TRIAMCIN CREAM 15 GM TUBE TP SCH ×2 (01:25→11:59)
[2018-05-27] MEDS: ACETAMINOPHEN 325 MG TABLET PO PRN (05:51)
--- NOTE | 2018-05-27 06:18 | NUR ---
PATIENT ASLEEP, EASILY AROUSABLE. RESPIRATIONS EVEN. NO SIGNS OF PAIN NOTED. DUE MEDS GIVEN WITH NO ASE NOTED. NEEDS ATTENDED. KEPT CLEAN, DRY, AND COMFORTABLE. SAFETY PRECAUTIONS AND COMFORT MEASURES IN PLACE. WILL GIVE REPORT TO DAY SHIFT FOR CONTINUITY OF CARE.
[2018-05-27] MEDS: BLOOD SUGAR DIAGNOSTIC 1 EACH STRIP VI SCH ×3 (06:41→16:57)
--- NOTE | 2018-05-27 07:25 | NUR ---
MSRN. PT RECEIVED A&0X3, TOLERATING ROOM AIR WITHOUT DISTRESS. PT DENIES PAIN OR DISCOMFORT. PT WITH IVC AT L FA, APPEARS INFILTRATED WITH SALINE FLUSH, WILL D.C. PT BED IN LOWEST LOCKED POSITION WITH HANDRAILSX3 AND CALL WHITMORE WITHIN REACH, PT BRIEFED ON POC AND IS WITHOUT CONCERN OR COMPLAINT AT THIS TIME. WILL CONTINUE POC. Addendum: 05/27/18 at 0824 by MANNIE WOOTEN RN PT HAD REMOVED 02, PREV WITH O2 VIA NC AT 3LPM.
[2018-05-27] MEDS: NITROFURANTOIN/NITROFURAN MAC 100 MG CAPSULE PO SCH (08:12)
[2018-05-27] MEDS: ASPIRIN EC 81 MG TABLET.DR PO SCH (08:13)
[2018-05-27] MEDS: ropiniROLE 0.5 MG TABLET PO SCH ×2 (08:13→13:44)
[2018-05-27] MEDS: ASCORBIC ACID 500 MG TABLET PO SCH (08:13)
[2018-05-27] MEDS: CARBIDOPA/LEVODOPA 25/100 MG 1 UDTAB PO SCH ×5 (08:13→16:57)
[2018-05-27] MEDS: PANTOPRAZOLE 40 MG TABLET.DR PO SCH (08:15)
[2018-05-27] MEDS: FLUTICASONE/VILANTEROL 1 EACH BLST.W.DEV IH SCH (08:19)
[2018-05-27 08:21] VITALS: BP 132/78
--- NOTE | 2018-05-27 08:23 | NUR ---
MSRN. PT WHEEZING, SPO2 95% O2 VIA NC AT 3LPM, RT CALLED FOR PRN AND PRESENT BUT PT REFUSING.
[2018-05-27] MEDS ORDERED: CEFTRIAXONE 1 G in IV D5W 50 ML IV ONE (11:30)
[2018-05-27 15:58] VITALS: BP 125/68
[2018-05-27] MEDS ORDERED: CEPHALEXIN MONOHYDRATE 500 MG CAPSULE PO SCH (17:00)
--- NOTE | 2018-05-27 19:04 | NUR ---
MSRN. PT PREPAPRED FOR D/C PER GUM MIXER. PT WITH O2 VIA NC AT 3LPM, WHEEZING PRESENT BUT REFUSING PRN WITH RT. PT CARE ENDORSED TO DECLAN AT ARU, PT TO 118B, PT'S MEDICATIONS, HEALTH NEEDS AND STATUS DISCUSSED. PT AND CAREGIVER BRIEFED ON SOH D/C PACKET AND SCRIPS, BOTH VERBALIZING UNDERSTANDING, RESOURCES AND INTENT TO FOLLOW POC. PT AWAITING TRANSPORT AT 1930. NIGHT NURSE TO D/C IV.
--- NOTE | 2018-05-27 19:05 | NUR ---
RN MS NOTES RECEIVED PATIENT IN BED AWAKE, ALERT AND ORIENTED X3, RESPIRATIONS EVEN AND UNLABORED WITH EQUAL RISE AND FALL OF CHEST, DENIES ANY PAIN OR DISCOMFORT AT THIS TIME, ON 02 2 L VIA NC, NO SOB. PATIENT IS WAITING FOR DISCHARGE TO [facility], IV BELONGINGS WITH PATIENT FAMILY AND CAREGIVER AT BEDSIDE WHOM TOOK PT BELONGINGS AND PHONE,SAFETY PRECAUTIONS IN PLACE ALL NEEDS ATTENDED WILL AWAIT TRANSPORTATION. REMAINS COMFORTABLE.WILL CONTINUE TO MONITOR.
[2018-05-27 20:00] VITALS: BP 132/69
--- NOTE | 2018-05-27 20:30 | NUR ---
RN MS DISCHARGE NOTES PATIENT IS AWAKE ALERT AND ORIENTED X 3, RESPIRATIONS EVEN AND UNLABORED WITH EQUAL RISE AND FALL OF CHEST ,DENIES PAIN AT THIS TIME, BELONGINGS WITH PATIENT, REPORT GIVEN TO [facility] EMT FOR TRANSPORT, IV SITE REMOVED WITH NO BLEEDING, ID BAND REMOVED, PATIENT SAFELY TRANSFERRED TO [facility] AND LEFT IN STABLE CONDITION WITH FAMILY AT PATIENT SIDE. ALL NEEDS WERE ATTENDED.VITAL SIGNS WNL.
[2018-05-28] MEDS ORDERED: ERGOCALCIFEROL (VITAMIN D 2) 50,000 UNIT CAPSULE PO SCH (09:00)
== END 2018-05-27 20:35 | DRG 682 ==
LOC: ER 10:10 → TELE 12:54 → MED 05-25 10:13
PROVIDERS: ADMIT Nurse Practitioner Acute Care; ATTEND Nurse Practitioner Acute Care
DX: N17.0 Acute kidney failure with tubular necrosis (principal); J96.01 Acute respiratory failure with hypoxia; G92 Toxic encephalopathy; E44.0 Moderate protein-calorie malnutrition; N39.0 Urinary tract infection, site not specified; E11.22 Type 2 diabetes mellitus with diabetic chronic kidney disease; I12.9 Hypertensive chronic kidney disease with stage 1 through stage 4 chronic kidney disease, or unspecified chronic kidney disease; N18.9 Chronic kidney disease, unspecified; Z88.2 Allergy status to sulfonamides; I25.10 Atherosclerotic heart disease of native coronary artery without angina pectoris; J44.9 Chronic obstructive pulmonary disease, unspecified; Z96.653 Presence of artificial knee joint, bilateral; R53.1 Weakness; Z87.440 Personal history of urinary (tract) infections; E03.9 Hypothyroidism, unspecified; G89.29 Other chronic pain; M54.9 Dorsalgia, unspecified; Z68.29 Body mass index [BMI] 29.0-29.9, adult; Y92.89 Other specified places as the place of occurrence of the external cause; G20 Parkinson's disease; B96.20 Unspecified Escherichia coli [E. coli] as the cause of diseases classified elsewhere; E78.5 Hyperlipidemia, unspecified; L30.4 Erythema intertrigo; C44.729 Squamous cell carcinoma of skin of left lower limb, including hip; C44.722 Squamous cell carcinoma of skin of right lower limb, including hip; D69.2 Other nonthrombocytopenic purpura; R32 Unspecified urinary incontinence; W01.0XXA Fall on same level from slipping, tripping and stumbling without subsequent striking against object, initial encounter; Z91.81 History of falling
CPT/HCPCS: 36415; 70450-TC; 71045-TC; 72125-TC; 72170-TC; 73502; 73552; 80048-TC; 80061-TC; 80076-TC; 81000-TC; 82962-TC; 83735-TC; 84100-TC; 85025-TC; 85730-TC; 87081-TC; 87086-TC; 87186-TC; 93307-TC; 97110-TC; 97116-TC; 97530-TC; A4606; G0378; J0696; J1815; J7030; J7040; J7060; Z7610

== ENCOUNTER 2019-04-20 15:35 | Outpatient (CLI) | payer MEDICARE, OTHER ==
[~2019-04-20 15:35] MED LIST changes: +ASCO500T9 PO; +ASPI-1152 PO; -ASPI-605 PO; +BISM262T27 PO; +CALC500T13 PO; +CARB25TA3 PO; -CARBIDOPA 25 MG PO; -CYAN10009 PO; -DEXT15DR6 EACHEYE; -DIPH50CA4 PO; +ERGO500014 PO; +ESTR42.5 VG; -FLUT16SP BNOSTRILS; +FLUT1BLS IH; -FLUTICASONE FUROATE IH; +GUAI600T53 PO; -LACT1CAP61 PO; +LINA5TAB PO; +MAGN250T10 PO; -MAGNESIUM OXIDE PO; -MELA1TAB15 PO; +MELA3TAB63 PO; -MUCINEX PO; +NAPR220T PO; +ONDA4TAB5 PO; +POLY15DR40 EACHEYE; -POTASSIUM CL PO; -PREMARIN VAG CREAM TOP; -PRESERVISION AREDS PO; +ROPI0.5T PO; +ROPI1TAB2 PO; -ROPINIROLE HCL PO; -SIME80TA PO; +SIME80TA14 PO; -VILANTEROL IH; +VIT1CAPS44 PO; +VITA1TAB56 PO; -VITAMIN B COMPLEX; -VITAMIN D2 PO
[2019-04-20 16:23] LABS: SERUM AMMONIA < 10 umol/L (11-32)
[2019-04-20 16:25] LABS: ALANINE AMINOTRANSFERASE 7 U/L (12-78); ALBUMIN 3.5 g/dL (3.4-5.0); ALKALINE PHOSPHATASE 65 U/L (46-116); ASPARTATE AMINOTRANSFERASE 8 U/L (15-37); BILIRUBIN,DIRECT 0.1 mg/dL (0.0-0.2); BILIRUBIN,TOTAL 0.4 mg/dL (0.2-1.0); TOTAL PROTEIN, SERUM 6.4 g/dL (6.4-8.2)
== END 2019-04-20 23:59 | disposition home or self-care (01) ==
LOC: LAB 15:35
DX: K72.90 Hepatic failure, unspecified without coma (principal); J44.9 Chronic obstructive pulmonary disease, unspecified; E11.22 Type 2 diabetes mellitus with diabetic chronic kidney disease; N18.9 Chronic kidney disease, unspecified; K21.9 Gastro-esophageal reflux disease without esophagitis
CPT/HCPCS: 36415; 80076-TC; 82140-TC

== ENCOUNTER 2019-07-22 17:05 | Inpatient (IN) | payer MEDICARE, OTHER ==
[~2019-07-22] VITALS: Ht 152.4 cm; Wt 68.9 kg
--- NOTE | 2019-07-22 17:05 | NUR ---
BIB RA [facility] FROM [facility],NOTED TO BE LETHARGIC SINCE CAREGIVER STARTED AT 10 AM THIS MORNING,BLOOD SUGAR 332, PT NOTED TO BE CONFUSED, -SOB, NAD NOTED, VSS, PENDING MD REYES
[2019-07-22] MEDS ORDERED: OLANZAPINE 10 MG VIAL IM ONE ×2 (17:21→17:30)
[2019-07-22] MEDS ORDERED: IV NS 0.9% 500 ML BAG IV ONE (17:30)
[2019-07-22 18:17] LABS: APPEARANCE,URINE Clear (CLEAR); BILIRUBIN,URINE Negative (NEGATIVE); BLOOD, URINE Negative Ery/uL (NEGATIVE); COLOR,URINE Yellow (YELLOW); KETONES,URINE Negative (NEGATIVE); LEUKOCYTE ESTERASE ,URINE Negative (NEGATIVE); NITRITE, URINE Negative (NEGATIVE); PROTEIN,URINE Negative (NEGATIVE); UGLUCOSE Negative (NEGATIVE); UROBILINOGEN,URINE 0.2 EU/dL (0.2)
[2019-07-22 18:25] LABS: BASOPHILS % (AUTO) 0.7 % (0.0-2.0); EOSINOPHILS % (AUTO) 1.3 % (0.0-6.0); HEMATOCRIT 36 % (33-45); HEMOGLOBIN 11.8 g/dL (11.5-14.8); LYMPHOCYTES # (AUTO) 1.4 /CMM (0.8-4.8); LYMPHOCYTES % (AUTO) 21.1 % (20.0-44.0); MEAN CORPUSCULAR HGB CONC 32 g/dl (31.0-36.0); MEAN CORPUSCULAR VOLUME 89 fL (82-100); MONOCYTES # (AUTO) 0.5 /CMM (0.1-1.30); MONOCYTES % (AUTO) 7.7 % (2.0-12.0); NEUTROPHILS # (AUTO) 4.5 /CMM (1.8-8.9); NEUTROPHILS % (AUTO) 69.2 % (43.0-81.0); PLATELET COUNT (AUTO) 160 /CMM (150-450); RED BLOOD CELL COUNT(AUTO) 4.07 MIL/uL (4.0-5.2); WHITE BLOOD COUNT (AUTO) 6.5 K/uL (4.3-11.0)
[2019-07-22 18:39] LABS: ALANINE AMINOTRANSFERASE < 6 U/L (12-78); ALBUMIN 3.8 g/dL (3.4-5.0); ALKALINE PHOSPHATASE 70 U/L (46-116); ASPARTATE AMINOTRANSFERASE 9 U/L (15-37); BILIRUBIN,DIRECT 0.1 mg/dL (0.0-0.2); BILIRUBIN,TOTAL 0.5 mg/dL (0.2-1.0); CALCIUM, SERUM 9.8 mg/dL (8.5-10.1); CARBON DIOXIDE 28 mmol/L (21-32); CHLORIDE 107 mmol/L (98-107); CREATININE 1.8 mg/dL (0.6-1.3); GLUCOSE 100 mg/dL (74-106); POTASSIUM 4.2 mmol/L (3.5-5.1); SODIUM SERUM 142 mmol/L (136-145); TOTAL PROTEIN, SERUM 6.9 g/dL (6.4-8.2); UREA NITROGEN, BLOOD 25 mg/dL (7-18)
--- NOTE | 2019-07-22 19:16 | NUR ---
CALLED [facility], PAGED NEVIN PRETTY
[2019-07-22 21:30] VITALS: BP 132/74
--- NOTE | 2019-07-22 21:37 | NUR ---
REPORT GIVEN TO ANH TALLEY FOR DIANN; PT TRANSPORTED TO 3RD FLOOR
--- NOTE | 2019-07-22 22:00 | NUR ---
FACING BASTERPRAWN TRAWLER HAND NOTES PATIENT RECEIVED FROM ER VIA GURNEY ACCOMPANIED BY ER STAFF AND DAUGHTERS. PATIENT A/O X1-2, ABLE TO RESPOND YES AND NO. STABLE ON RA WITH BREATHING EVEN AND UNLABORED, NO SOB NOTED. NO SIGNS OF ACUTE DISTRESS. NO COMPLAINTS OF PAIN OR DISCOMFORT, NO FACIAL GRIMACING. TELE MONITORS PLACED ON PATIENT. IV LOCATED ON L HAND #20 PATENT AND INTACT. SKIN ASSESSMENT DONE, PICTURES TAKEN. VITALS DONE. BELONGINGS ACCOUNTED FOR. SAFETY PRECAUTIONS IN PLACE WITH BED IN LOWEST POSITION, CALL LIGHT WITHIN REACH, BED ALARM ON, BREAKS, AND SIDE RAILS UPX 2. WILL CONTINUE TO MONITOR THROUOUT THE SHIFT
--- NOTE | 2019-07-22 22:40 | NUR ---
STEEPING PRESS OPERATOR NOTES MADE MD ROONEY AWARE OF PATIENT CODE STATUS OF DNR- POLST WAS FAXED FROM FACILITY.
[2019-07-22] MEDS ORDERED: VIT1CAPS44 PO (22:59)
[2019-07-22] MEDS ORDERED: ESTR42.5 VG (22:59)
[2019-07-22] MEDS ORDERED: CARB-93 PO (22:59)
[2019-07-22] MEDS ORDERED: ESOM40CA PO (22:59)
[2019-07-22] MEDS ORDERED: ERGO500040 PO (22:59)
[2019-07-22] MEDS ORDERED: FLUT1BLS IH (22:59)
[2019-07-22] MEDS ORDERED: LINA5TAB PO (22:59)
[2019-07-22] MEDS ORDERED: MEMA10TA PO (22:59)
[2019-07-22] MEDS ORDERED: LEVO50TA8 PO (22:59)
[2019-07-22] MEDS ORDERED: MELA3TAB63 PO (22:59)
[2019-07-22] MEDS ORDERED: ACID1TAB14 PO (22:59)
[2019-07-22] MEDS ORDERED: FURO20TA4 PO (22:59)
[2019-07-22] MEDS ORDERED: TRAZ-182 PO (22:59)
[2019-07-22] MEDS ORDERED: ROPI0.5T4 PO (22:59)
[2019-07-22] MEDS ORDERED: ALBU18HF2 INH (22:59)
[2019-07-22] MEDS ORDERED: MAGN250T2 PO (22:59)
[2019-07-22] MEDS ORDERED: ENTA200T PO (22:59)
[2019-07-22 23:00] VITALS: BP 132/74
[2019-07-22] MEDS ORDERED: Z GUARD REMEDY 2 OZ OINT TP PRN (23:30)
[2019-07-22] MEDS ORDERED: ONDANSETRON HCL/PF 4 MG/2 ML VIAL IVP PRN (23:30)
[2019-07-22] MEDS ORDERED: HYDROCODONE/APAP 5/325MG 1 EACH TABLET PO PRN (23:30)
[2019-07-22] MEDS ORDERED: ZOLPIDEM TARTRATE 5 MG TABLET PO PRN (23:30)
[2019-07-22] MEDS ORDERED: MAG HYDROX/AL HYDROX/SIMETH 30 ML UDC PO PRN (23:30)
[2019-07-22] MEDS ORDERED: MAGNESIUM HYDROXIDE 30 ML UDC PO PRN (23:30)
[2019-07-22] MEDS ORDERED: ACETAMINOPHEN 325 MG TABLET PO PRN (23:30)
[2019-07-22] MEDS: IV D5/0.45 NACL 1,000 ML IV PRN (23:35)
[2019-07-23] VITALS: BP 116/51
--- NOTE | 2019-07-23 | NUR ---
PATIENT CONTACT INFO CHILDREN NIKI [phone] KHOA [phone] SUZI [phone]
[2019-07-23 04:00] VITALS: BP 114/60
--- NOTE | 2019-07-23 06:39 | NUR ---
SOLAR FIELD INSTALLATION CREW MEMBER CLOSING NOTES PATIENT CURRENTLY RESTING IN BED A/O X 1-2, ABLE TO FOLLOW COMMANDS. STABLE ON RA WITH BREATHING EVEN AND UNLABORED, NO SOB NOTED. IV LOCATED ON L HAND #20 SL RUNNING D5 1/2 NS @ 75ML/ HR. TELE MONITOR READING SR. NO SIGNS OF ACUTE DISTRESS. NO COMPLAINTS OF PAIN OR DISCOMFORT. PATIENT WAS KEPT CLEAN AND DRY THROUGHOUT THE NIGHT. ALL NEEDS ATTENDED TO. SAFETY PRECAUTIONS IN PLACE WITH BED IN LOWEST POSITION, CALL LIGHT WITHIN REACH, BREAKS ON, SIDE RAILS UP. WILL ENDORSE TO DAY SHIFT NURSE ABOUT DIANN
[2019-07-23 06:40] LABS: BASOPHILS % (AUTO) 0.4 % (0.0-2.0); EOSINOPHILS % (AUTO) 1.9 % (0.0-6.0); HEMATOCRIT 32 % (33-45); HEMOGLOBIN 10.7 g/dL (11.5-14.8); LYMPHOCYTES # (AUTO) 1.3 /CMM (0.8-4.8); LYMPHOCYTES % (AUTO) 20.7 % (20.0-44.0); MEAN CORPUSCULAR HGB CONC 33 g/dl (31.0-36.0); MEAN CORPUSCULAR VOLUME 88 fL (82-100); MONOCYTES # (AUTO) 0.5 /CMM (0.1-1.30); MONOCYTES % (AUTO) 8.6 % (2.0-12.0); NEUTROPHILS # (AUTO) 4.2 /CMM (1.8-8.9); NEUTROPHILS % (AUTO) 68.4 % (43.0-81.0); PLATELET COUNT (AUTO) 147 /CMM (150-450); RED BLOOD CELL COUNT(AUTO) 3.69 MIL/uL (4.0-5.2); WHITE BLOOD COUNT (AUTO) 6.2 K/uL (4.3-11.0)
[2019-07-23 06:59] LABS: CALCIUM, SERUM 8.6 mg/dL (8.5-10.1); CARBON DIOXIDE 23 mmol/L (21-32); CHLORIDE 110 mmol/L (98-107); CREATININE 1.5 mg/dL (0.6-1.3); GLUCOSE 91 mg/dL (74-106); MAGNESIUM 1.9 mg/dL (1.8-2.4); PHOSPHORUS 2.7 mg/dL (2.5-4.9); POTASSIUM 3.7 mmol/L (3.5-5.1); SODIUM SERUM 144 mmol/L (136-145); UREA NITROGEN, BLOOD 19 mg/dL (7-18)
[2019-07-23 07:03] LABS: THYROID STIMULATING HORMONE 4.348 uIU/mL (0.358-3.74)
--- NOTE | 2019-07-23 07:30 | NUR ---
MS/RN Opening Note Patine received in bed, AO x 1-2, able to responds all stimuli. Pt does no appears pain or any discomfort, no behavior or agitation observed. Skin is warm to touch, keep clean/dry, intact IV site, respiratory even and unlabored in room air. Keep lower position of the bed with elevated HOB. Call light within reach, will continue to monitor.
[2019-07-23 08:00] VITALS: BP 135/73
[2019-07-23] MEDS: LEVOTHYROXINE SODIUM 50 MCG TABLET PO SCH (09:30)
[2019-07-23] MEDS: CARBIDOPA/LEVODOPA 25/100 MG 1 UDTAB PO SCH ×4 (09:30→21:16)
[2019-07-23] MEDS ORDERED: ALBUTEROL FS 2.5 MG/0.5 ML VIAL.NEB NEB PRN (09:30)
--- NOTE | 2019-07-23 09:30 | NUR ---
Clarified code status (DNR) by joshua's daughter, OPEN WINDER/Russell aware above and placed order DNR code status.
[2019-07-23] MEDS: ACIDOPHILUS/BULGARICUS 1 EACH TAB.CHEW PO SCH (10:00)
[2019-07-23] MEDS: ENTACAPONE 200 MG TABLET PO SCH ×2 (12:50→16:41)
[2019-07-23] MEDS: IV D5/0.45 NACL 1,000 ML IV PRN (15:19)
[2019-07-23 16:22] LABS: APPEARANCE,URINE CLOUDY (CLEAR); BILIRUBIN,URINE NEGATIVE (NEGATIVE); BLOOD, URINE MODERATE Ery/uL (NEGATIVE); COLOR,URINE YELLOW (YELLOW); KETONES,URINE NEGATIVE (NEGATIVE); LEUKOCYTE ESTERASE ,URINE LARGE (NEGATIVE); NITRITE, URINE POSITIVE (NEGATIVE); PROTEIN,URINE 30 mg/dl (NEGATIVE); UGLUCOSE NEGATIVE (NEGATIVE); UROBILINOGEN,URINE 0.2 EU/dL (0.2)
[2019-07-23 16:34] LABS: CREATININE, URINE 109.7 MG/DL (30.0-125.0); URINE TOTAL PROTEIN 61.1 mg/dL (0-11.9)
[2019-07-23] MEDS: ropiniROLE 0.5 MG TABLET PO SCH (16:38)
[2019-07-23] MEDS: MEMANTINE HCL 5 MG TABLET PO SCH (16:41)
[2019-07-23 17:29] LABS: BACTERIA,URINE 3+ /HPF (None Seen); RBC,URINE 21-50 /HPF (0-2); SQUAMOUS EPITHELIAL CELL,UR 0-2 /HPF (None Seen); WBC,URINE TOO NUMEROUS TO COUN /HPF (0-3)
--- NOTE | 2019-07-23 18:33 | NUR ---
MS/RN Closing note Patient in bed comfortably, no appears pain or discomfort. Respiration and unlabored, no sob or distress observed. Skin is warm to touch, keep clean/dry, intact new IV site. Kept lower position of bed with elevated HOB and bed alarm on for safety. Call light within reach, all needs met. Will endorse retail shift leader.
[2019-07-23 18:55] LABS: EOSINOPHIL,URINE None Seen
--- NOTE | 2019-07-23 19:31 | NUR ---
MS RN OPENING NOTES PATIENT CURRENTLY RESTING IN BED A/O X 1-2, ABLE TO FOLLOW COMMANDS. STABLE ON RA WITH BREATHING EVEN AND UNLABORED, NO SOB NOTED. IV LOCATED ON L HAND #20 SL RUNNING D5 1/2 NS @ 75ML/ HR. TELE MONITOR READING SR. NO SIGNS OF ACUTE DISTRESS. NO COMPLAINTS OF PAIN OR DISCOMFORT. SAFETY PRECAUTIONS IN PLACE WITH BED IN LOWEST POSITION, CALL LIGHT WITHIN REACH, BREAKS ON, SIDE RAILS UP. WILL CONTINUE TO MONITOR THROUGHOUT THE NIGHT.
[2019-07-23 20:00] VITALS: BP 124/59
--- NOTE | 2019-07-23 21:22 | NUR ---
MS RN NOTES HELD SCHEDULED SEROQUEL, PATIENT ALTERED AND SLEEPING. NOT AWAKE TOO OFTEN. DO NOT WANT TO MAKE PATIENT MORE DROWSY. WILL CONTINUE TO MONITOR.
[2019-07-23] MEDS ORDERED: TRAZODONE 50 MG TABLET PO SCH (22:00)
[2019-07-23] MEDS ORDERED: ESTROGENS,CONJUGATED TUBE VG SCH (22:00)
[2019-07-23] MEDS ORDERED: QUETIAPINE FUMARATE 25 MG TABLET PO SCH (22:00)
[2019-07-24] MEDS: IV D5/0.45 NACL 1,000 ML IV PRN ×2 (05:33→21:37)
--- NOTE | 2019-07-24 06:32 | NUR ---
MS RN CLOSING NOTES PATIENT RESTING IN BED A/O X 1-2, ABLE TO FOLLOW COMMANDS. STABLE ON RA WITH BREATHING EVEN AND UNLABORED, NO SOB NOTED. IV LOCATED ON L HAND #20 SL RUNNING D5 1/2 NS @ 75ML/ HR. TELE MONITOR READING SR. NO SIGNS OF ACUTE DISTRESS. NO COMPLAINTS OF PAIN OR DISCOMFORT. SAFETY PRECAUTIONS IN PLACE WITH BED IN LOWEST POSITION, CALL LIGHT WITHIN REACH, BREAKS ON, SIDE RAILS UP. PATIENT KEPT CLEAN AND DRY THROUGHOUT THE NIGHT. ALL NEEDS ATTENDED TO. WILL ENDORSE TO ONCOMING SHIFT ABOUT DIANN.
[2019-07-24 07:25] LABS: BASOPHILS % (AUTO) 0.4 % (0.0-2.0); EOSINOPHILS % (AUTO) 2.5 % (0.0-6.0); HEMATOCRIT 32 % (33-45); HEMOGLOBIN 10.7 g/dL (11.5-14.8); LYMPHOCYTES # (AUTO) 1.5 /CMM (0.8-4.8); LYMPHOCYTES % (AUTO) 20.4 % (20.0-44.0); MEAN CORPUSCULAR HGB CONC 33 g/dl (31.0-36.0); MEAN CORPUSCULAR VOLUME 89 fL (82-100); MONOCYTES # (AUTO) 0.6 /CMM (0.1-1.30); MONOCYTES % (AUTO) 7.4 % (2.0-12.0); NEUTROPHILS # (AUTO) 5.2 /CMM (1.8-8.9); NEUTROPHILS % (AUTO) 69.3 % (43.0-81.0); PLATELET COUNT (AUTO) 140 /CMM (150-450); RED BLOOD CELL COUNT(AUTO) 3.65 MIL/uL (4.0-5.2); WHITE BLOOD COUNT (AUTO) 7.5 K/uL (4.3-11.0)
[2019-07-24] MEDS ORDERED: LEVOTHYROXINE SODIUM 50 MCG TABLET PO SCH (07:30)
--- NOTE | 2019-07-24 07:30 | NUR ---
MS/RN Opening Note Patine received in bed, awake, oriented to self, able to responds all stimuli. Pt denies pain or any discomfort, no behavior at this time. Skin is warm to touch, keep clean/dry, intact IV site, respiratory even and unlabored in room air. Keep lower position of the bed with elevated HOB. Call light within reach, will continue to monitor.
[2019-07-24] MEDS: LEVOTHYROXINE SODIUM 50 MCG TABLET PO SCH (07:44)
[2019-07-24 07:49] LABS: ALANINE AMINOTRANSFERASE 6 U/L (12-78); ALBUMIN 3.1 g/dL (3.4-5.0); ALKALINE PHOSPHATASE 52 U/L (46-116); ASPARTATE AMINOTRANSFERASE 6 U/L (15-37); BILIRUBIN,TOTAL 0.6 mg/dL (0.2-1.0); CALCIUM, SERUM 8.6 mg/dL (8.5-10.1); CARBON DIOXIDE 27 mmol/L (21-32); CHLORIDE 108 mmol/L (98-107); CREATININE 1.4 mg/dL (0.6-1.3); GLUCOSE 89 mg/dL (74-106); MAGNESIUM 1.8 mg/dL (1.8-2.4); PHOSPHORUS 2.6 mg/dL (2.5-4.9); POTASSIUM 4.2 mmol/L (3.5-5.1); SODIUM SERUM 142 mmol/L (136-145); TOTAL PROTEIN, SERUM 5.8 g/dL (6.4-8.2); UREA NITROGEN, BLOOD 15 mg/dL (7-18)
[2019-07-24 07:52] LABS: CREATINE KINASE, TOTAL 27 U/L (26-192)
[2019-07-24 08:00] VITALS: BP 122/59
[2019-07-24] MEDS: ACIDOPHILUS/BULGARICUS 1 EACH TAB.CHEW PO SCH (08:41)
[2019-07-24] MEDS: CARBIDOPA/LEVODOPA 25/100 MG 1 UDTAB PO SCH ×4 (08:41→21:38)
[2019-07-24] MEDS: ENTACAPONE 200 MG TABLET PO SCH ×3 (08:41→17:43)
[2019-07-24] MEDS: MEMANTINE HCL 5 MG TABLET PO SCH ×2 (08:41→17:44)
[2019-07-24] MEDS: LINAGLIPTIN 5 MG TABLET PO SCH (08:41)
[2019-07-24] MEDS: ropiniROLE 0.5 MG TABLET PO SCH ×2 (08:42→17:44)
[2019-07-24] MEDS: FLUTICASONE/VILANTEROL 1 EACH BLST.W.DEV IH SCH (08:52)
--- NOTE | 2019-07-24 10:30 | NUR ---
Patient has been done frozen mole on back by dermatology last week. picture taken.
--- NOTE | 2019-07-24 12:49 | NUR ---
WOUND CARE CONSULT: PT PRESENTS WITH SKIN LESION TO BACK WHICH IS DRY AND IS BEING TREATED BY POLICE JUSTICE, ODALIS REDNESS TO SACRAL AREA, RT HAND SKIN TEAR AND LEFT LOWER LEG WOUND, ALL PRESENT ON ADMISSION. RECOMMEND DPM CONSULT AND SURGICAL CONSULT. DR HANSON AND DR REARDON NOTIFIED. DISCUSSED SKIN PROTECTION WITH NURSING STAFF. WILL SEE PRN. PRETTY IN AGREEMENT WITH PLAN OF CARE. Addendum: 07/24/19 at 1251 by HOA AZUL WNDNU Amended: Links added.
[2019-07-24 16:00] VITALS: BP 109/54
--- NOTE | 2019-07-24 18:45 | NUR ---
MS/RN Closing note Patient in bed comfortably, patient awake and more clear during day shift, no denies pain or discomfort. Respiration and unlabored, no sob or distress observed. Skin is warm to touch, keep clean/dry, intact IV site. Kept lower position of bed with elevated HOB and bed alarm on for safety. Call light within reach, all needs met. Will endorse restaurant shift leader.
[2019-07-24 20:00] VITALS: BP 120/65
[2019-07-24] MEDS: QUETIAPINE FUMARATE 25 MG TABLET PO SCH (21:38)
[2019-07-25] MEDS: LEVOTHYROXINE SODIUM 50 MCG TABLET PO SCH (06:13)
[2019-07-25 07:26] LABS: CALCIUM, SERUM 8.9 mg/dL (8.5-10.1); CREATININE 1.2 mg/dL (0.6-1.3); POTASSIUM 4.6 mmol/L (3.5-5.1)
--- NOTE | 2019-07-25 07:30 | NUR ---
RECEIVED PT. ALERT AND ORIENTED X1-2.COOPERATIVE,MED COMPLIANT.TANK FARM GAUGER AT BEDSIDE.
[2019-07-25 08:00] VITALS: BP 199/63
[2019-07-25 08:06] LABS: PTH, INTACT 79 pg/mL (15-65)
[2019-07-25] MEDS ORDERED: CEFTRIAXONE 1 G in IV D5W 50 ML IV SCH (09:00)
[2019-07-25] MEDS: LINAGLIPTIN 5 MG TABLET PO SCH (09:00)
[2019-07-25] MEDS: FLUTICASONE/VILANTEROL 1 EACH BLST.W.DEV IH SCH (10:21)
[2019-07-25] MEDS: ropiniROLE 0.5 MG TABLET PO SCH ×2 (10:22→18:01)
[2019-07-25] MEDS: CARBIDOPA/LEVODOPA 25/100 MG 1 UDTAB PO SCH ×4 (10:22→18:14)
[2019-07-25] MEDS: ACIDOPHILUS/BULGARICUS 1 EACH TAB.CHEW PO SCH (10:22)
[2019-07-25] MEDS: MEMANTINE HCL 5 MG TABLET PO SCH ×2 (10:22→18:01)
[2019-07-25] MEDS: ENTACAPONE 200 MG TABLET PO SCH ×3 (10:22→18:01)
[2019-07-25 11:07] LABS: *SPE A/G RATIO 1.3 (0.7-1.7); *SPE ALPHA-1-GLOBULIN 0.2 g/dL (0.0-0.4); *SPE ALPHA-2-GLOBULIN 0.8 g/dL (0.4-1.0); *SPE BETA GLOBULIN 0.8 g/dL (0.7-1.3); *SPE GLOBULIN, TOTAL 2.3 g/dL (2.2-3.9); *SPE M-SPIKE Not Observed g/dL (Not Observed); *SPEGAMMA GLOBULIN 0.5 g/dL (0.4-1.8)
[2019-07-25] MEDS: IV D5/0.45 NACL 1,000 ML IV PRN (12:35)
[2019-07-25] MEDS: MEROPENEM 500 MG in IV NS 0.9% 50 ML IV SCH (14:07)
--- NOTE | 2019-07-25 15:00 | NUR ---
RECEIVED WORD FROM [employer] PT ESBL IN URINE AND E-COLI. DR. CASSIDY NOTIFIED AND TO CHECK ANTIBIOTIC SENSITIVITY.
[2019-07-25 16:00] VITALS: BP 108/50
--- NOTE | 2019-07-25 17:00 | NUR ---
PLACEMENT OF #20 GA MIDLINE LT. UPPER ARM FOR GROUP HOME ANTIBIOTIC.PT. TOLERATED WELL.
--- NOTE | 2019-07-25 18:00 | NUR ---
PLANS FOR DISCHARGE TODAY.AWAITING CASE MGMT. TO INFORM NURSE.
--- NOTE | 2019-07-25 19:00 | NUR ---
Received patient awake with conversation noted confusion, "I want to go to my room". " [facility] She is smiling and cooperative. She has her eyeglasses on and TV electrical and electronic assembler light in her hand, I reveived the call light with her. Bedalarm on Contact Isolation maintained.
[2019-07-25 19:59] VITALS: BP 120/79
[2019-07-25 20:21] VITALS: BP 120/79
[2019-07-25] MEDS: QUETIAPINE FUMARATE 25 MG TABLET PO SCH (21:04)
[2019-07-26] MEDS: MEROPENEM 500 MG in IV NS 0.9% 50 ML IV SCH ×2 (00:56→13:08)
[2019-07-26] MEDS: IV D5/0.45 NACL 1,000 ML IV PRN (03:23)
--- NOTE | 2019-07-26 05:04 | NUR ---
ENDING NOTES: Patient cooperative and friendly. smiling with conversation.Remains in Isolation for EColi and ESBL in the urine contact Isolation. Incontinent large amopunts of urine. Am Labs drawn from the left upper arm midline w/o problem. Slept thru the night. Bed alarm on
[2019-07-26 06:24] LABS: BASOPHILS # (AUTO) 0.1 /CMM (0.0-0.2); BASOPHILS % (AUTO) 0.8 % (0.0-2.0); EOSINOPHILS % (AUTO) 3.4 % (0.0-6.0); HEMATOCRIT 31 % (33-45); HEMOGLOBIN 10.2 g/dL (11.5-14.8); LYMPHOCYTES # (AUTO) 1.3 /CMM (0.8-4.8); LYMPHOCYTES % (AUTO) 15.4 % (20.0-44.0); MEAN CORPUSCULAR HGB CONC 33 g/dl (31.0-36.0); MEAN CORPUSCULAR VOLUME 90 fL (82-100); MONOCYTES # (AUTO) 0.7 /CMM (0.1-1.30); NEUTROPHILS # (AUTO) 6.2 /CMM (1.8-8.9); NEUTROPHILS % (AUTO) 72.4 % (43.0-81.0); WHITE BLOOD COUNT (AUTO) 8.6 K/uL (4.3-11.0)
[2019-07-26 06:52] LABS: ALBUMIN 2.8 g/dL (3.4-5.0); BILIRUBIN,TOTAL 0.6 mg/dL (0.2-1.0); CALCIUM, SERUM 8.5 mg/dL (8.5-10.1); CREATININE 1.3 mg/dL (0.6-1.3); MAGNESIUM 1.8 mg/dL (1.8-2.4); PHOSPHORUS 2.7 mg/dL (2.5-4.9); POTASSIUM 4.5 mmol/L (3.5-5.1); TOTAL PROTEIN, SERUM 5.5 g/dL (6.4-8.2)
[2019-07-26 07:06] LABS: PLATELET COUNT (AUTO) 130 /CMM (150-450)
--- NOTE | 2019-07-26 07:15 | NUR ---
MS RN NOTES PATIENT IN BED ALERT ORIENTED X 1-2. NO ACUTE DISTRESS NOTED, BREATHING UNLABORED. NO SOB NOTED. IV ACCESS PATENT AND INTACT, NO REDNESS OR SWELLING NOTED. SAFETY MEASURES IN PLACE. CALL LIGHT WITHIN REACH. WILL CONTINUE TO MONITOR ACCORDINGLY.
[2019-07-26] MEDS: LEVOTHYROXINE SODIUM 50 MCG TABLET PO SCH (07:44)
[2019-07-26 08:00] VITALS: BP 133/90
[2019-07-26] MEDS: MEMANTINE HCL 5 MG TABLET PO SCH ×2 (09:34→16:20)
[2019-07-26] MEDS: LINAGLIPTIN 5 MG TABLET PO SCH (09:34)
[2019-07-26] MEDS: ENTACAPONE 200 MG TABLET PO SCH ×3 (09:34→16:20)
[2019-07-26] MEDS: ropiniROLE 0.5 MG TABLET PO SCH ×2 (09:34→16:20)
[2019-07-26] MEDS: CARBIDOPA/LEVODOPA 25/100 MG 1 UDTAB PO SCH ×3 (09:34→16:20)
[2019-07-26] MEDS: FLUTICASONE/VILANTEROL 1 EACH BLST.W.DEV IH SCH (09:34)
[2019-07-26] MEDS: ACIDOPHILUS/BULGARICUS 1 EACH TAB.CHEW PO SCH (09:34)
--- NOTE | 2019-07-26 12:00 | NUR ---
MS RN NOTES FOLLOWED UP WITH [facility]IST REGARDING HYDROCORTISONE CREAM SAID WILL BE SENT ON THE FLOOR, WILL ADMINISTER ONCE AVAILABLE
[2019-07-26] MEDS: HYDROCORTISONE 1% CREAM 28.35 GM TUBE TP SCH ×2 (14:47→16:21)
[2019-07-26 16:00] VITALS: BP_SYST 130
--- NOTE | 2019-07-26 17:00 | NUR ---
SUPERVISOR CHAR HOUSE NOTES PATIENT DISCHARGE TO [facility] WITH STABLE VITAL SIGNS.REPORT GIVEN TO ZAIN TALLEY. NO ACUTE DISTRESS NOTED, BREATHING UNLABORED.NO SOB NOTED. LEFT UPPER ARM MIDLINE PATENT AND INTACT, NO REDNESS, NO SWELLING , NO BLEEDING NOTED, WITH TRANSPARENT DRESSING. DISCHARGE INSTRUCTIONS GIVEN TO EMT PERSONNEL TO BE GIVEN TO [facility]. ALL BELONGINGS ACCOUNTED FOR. NEEDS ATTENDED. PICKED UP VIA AMBULANCE IN A GURNEY ACCOMPANIED BY 2 EMT PERSONNEL IN STABLE CONDITION.
[2019-08-06] MEDS ORDERED: ERGOCALCIFEROL (VITAMIN D 2) 50,000 UNIT CAPSULE PO SCH (09:00)
== END 2019-07-26 17:00 | DRG 682 ==
LOC: ER 17:07 → TELE 21:00 → MED 07-23 09:34
PROVIDERS: ADMIT Student in an Organized Health Care Education/Training Program; ATTEND Internal Medicine
PROC: 05H633Z Insertion of Infusion Device into Left Subclavian Vein, Percutaneous Approach (ICD-10-PCS; principal; 2019-07-25)
PROC: B547ZZA Ultrasonography of Left Subclavian Vein, Guidance (ICD-10-PCS; 2019-07-25)
DX: N17.0 Acute kidney failure with tubular necrosis (principal); G92 Toxic encephalopathy; N39.0 Urinary tract infection, site not specified; E44.0 Moderate protein-calorie malnutrition; F03.91 Unspecified dementia, unspecified severity, with behavioral disturbance; F02.81 Dementia in other diseases classified elsewhere, unspecified severity, with behavioral disturbance; Z16.12 Extended spectrum beta lactamase (ESBL) resistance; E11.40 Type 2 diabetes mellitus with diabetic neuropathy, unspecified; E03.9 Hypothyroidism, unspecified; E86.0 Dehydration; I25.10 Atherosclerotic heart disease of native coronary artery without angina pectoris; M20.42 Other hammer toe(s) (acquired), left foot; M20.41 Other hammer toe(s) (acquired), right foot; N25.81 Secondary hyperparathyroidism of renal origin; Z87.440 Personal history of urinary (tract) infections; Z96.611 Presence of right artificial shoulder joint; G89.29 Other chronic pain; G20 Parkinson's disease; J44.9 Chronic obstructive pulmonary disease, unspecified; E88.09 Other disorders of plasma-protein metabolism, not elsewhere classified; M62.50 Muscle wasting and atrophy, not elsewhere classified, unspecified site; Z68.29 Body mass index [BMI] 29.0-29.9, adult; Z85.820 Personal history of malignant melanoma of skin; F29 Unspecified psychosis not due to a substance or known physiological condition; B96.20 Unspecified Escherichia coli [E. coli] as the cause of diseases classified elsewhere; S81.812A Laceration without foreign body, left lower leg, initial encounter; X58.XXXA Exposure to other specified factors, initial encounter; Y93.9 Activity, unspecified; Y92.89 Other specified places as the place of occurrence of the external cause; Y99.9 Unspecified external cause status; S61.411A Laceration without foreign body of right hand, initial encounter; I10 Essential (primary) hypertension; E86.9 Volume depletion, unspecified; R40.2413 Glasgow coma scale score 13-15, at hospital admission
CPT/HCPCS: 36415; 70450-TC; 71045-TC; 80048-TC; 80053-TC; 80076-TC; 81000-TC; 82550-TC; 82570-TC; 83605-TC; 83735-TC; 83970; 84100-TC; 84155; 84155-TC; 84165; 84300-TC; 84443-TC; 84484-TC; 85025-TC; 85730-TC; 87040-TC; 87081-TC; 87086-TC; 87186-TC; 92611-TC; 97110-TC; 97112-TC; 97116-TC; 97530-TC; A4216; G0378; J0696; J2185; J2405; J3490; J7060